=== PATIENT | male | born 1950 | race Caucasian/White ===

== ENCOUNTER 2016-06-10 19:14 | Inpatient (IN) | payer MEDICARE, OTHER ==
--- NOTE | ~2016-06-10 | CN ---
Consultation Report [facility] [address] [place]. [address] NAME: JEANIE OH SR : 48 STATUS : ADM IN PAT#: [id number] AGE: 65 ADM/REG DATE : 06/11/16 MR#: [id number] REPORT SERV DATE: 06/12/16 DICTATED BY: GURDEEP RUBIO DATE: 06/12/16 REPORT STATUS : Draft TRANSCRIBED BY: BUD DATE: 06/12/16 DATE OF CONSULTATION: CHIEF COMPLAINT: Renal insufficiency. HISTORY OF PRESENT ILLNESS: Mr. Oh is a 65-year-old patient of my partner, Dr. Lucas Cai. He has a longstanding history of an ischemic cardiomyopathy with EF of approximately 20%. Several months ago, he was changed from his usual regimen of valsartan to Entresto. In this setting, his baseline creatinine, which was mildly elevated, has gotten progressively worse. He was admitted to [facility] with acute on chronic renal insufficiency, creatinine around 4.9. His blood pressure has been running a bit on the low side as an outpatient. He has not had any symptoms of chest pain or dyspnea. PAST MEDICAL HISTORY: 1. Coronary artery disease with previous bypass surgery. 2. Ischemic cardiomyopathy, EF 20%. 3. Hypertension. 4. Hypercholesterolemia. 5. Type 2 diabetes. 6. Chronic kidney disease. 7. Hypothyroidism. SOCIAL HISTORY: He does not smoke or drink alcohol. FAMILY HISTORY: There is no family history of early coronary artery disease. REVIEW OF SYSTEMS: A complete review of systems was obtained, which is negative in detail except as mentioned above in the HPI. ALLERGIES: NO KNOWN DRUG ALLERGIES. MEDICATIONS: Include Lipitor 40 mg daily, Bumex 1 mg orally as needed, Rocaltrol, Coreg 12.5 mg twice a day, Plavix 75 mg daily, vitamin B12, Benadryl, vitamin D, iron, Proscar, insulin, Synthroid, potassium 20 mEq as needed with Bumex, Zantac, Entresto 24/ one twice a day, vitamin E, and zinc. PHYSICAL EXAMINATION: VITAL SIGNS: Blood pressure 123/74, heart rate of 80, respiratory rate of 14. GENERAL: Comfortable in no acute distress. HEENT: Anicteric. No xanthelasma. Lips without cyanosis. NECK: No JVD. Carotids 2+ and symmetric. No carotid bruits. LUNGS: CTA bilaterally. No wheezes or rhonchi. No accessory muscle use. Consultation Report [facility] [place] [address] [place]. [address] NAME: JEANIE OH SR : 48 STATUS : ADM IN PAT#: [id number] AGE: 65 ADM/REG DATE : 06/11/16 MR#: [id number] REPORT SERV DATE: 06/12/16 DICTATED BY: GURDEEP RUBIO DATE: 06/12/16 REPORT STATUS : Draft TRANSCRIBED BY: BUD DATE: 06/12/16 COR: RRR. Normally placed PMI. Normal S1 and S2. No murmurs, rubs or gallops. ABD: Soft, nontender, nondistended. Normal bowel sounds. No abdominal bruits. EXT: No clubbing, cyanosis or edema 2+ and symmetric distal pulses. SKIN: Warm. Dry. No venous stasis changes. MS: No kyphosis. NEURO/PSYCH: Oriented x3. No anxiety or depression. LABORATORY STUDIES: Potassium of 3.8, creatinine of 4.84 today down from 4.99 yesterday, hematocrit of 34. EKG: A 12-lead EKG shows sinus rhythm with left bundle-branch block. IMPRESSION: Mr. Oh is a 65-year-old man with an ischemic cardiomyopathy, ejection fraction around 20%. In the setting of starting Entresto, he has developed worsening of chronic renal insufficiency, now in acute renal failure. I agree with plans to hold this Entresto, gently rehydrate him, and monitor his blood pressure with plans to let his blood pressure run a bit high at least in the short term. FELIX/BUD Gurdeep Rubio M.D. / [id number] CC: MD Jo Ann Sharma M.D.
--- NOTE | ~2016-06-10 | CN ---
Consultation Report [facility] [address] [place]. [address] NAME: JEANIE OH SR : 48 STATUS : ADM IN PAT#: [id number] AGE: 65 ADM/REG DATE : 06/11/16 MR#: [id number] REPORT SERV DATE: 06/11/16 DICTATED BY: DATE: REPORT STATUS : Draft TRANSCRIBED BY: MODL DATE: 06/11/16 CONSULTATION DATE OF CONSULTATION: 06/11/2016 REASON FOR CONSULTATION: Acute kidney injury. HISTORY OF PRESENT ILLNESS: Mr. Oh is a 65-year-old, white male with a history of CKD, followed in [place] by Dr. Keita. He presented to the hospital after being told by his on site construction superintendent that his kidney function was worse and he needed further evaluation. I looked through the record in April here at this hospital. He had a creatinine of 1.9. In May, he had a creatinine of 2.5. Dr. Cai started him on Entresto on 05/05/2016. He currently denies any shortness of breath, chest pain, tightness, or pressure. He has had no problems with edema. He had Bumex increased in March. About a week and a half ago, he had some fevers and was placed on amoxicillin. This has been since discontinued. He has noted over the last couple weeks odd feeling, checks his blood pressure and is in the 90s and has been confirmed that is in the 90s at cardiac rehab as well. Denies any nausea, vomiting, or diarrhea. Denies any dysuria or hematuria. Has nocturia, which is chronic, is known to have BPH. PAST MEDICAL HISTORY: CKD, coronary artery disease, diabetes, CHF, CABG in 2015, hypertension, EF of 22%, hypothyroidism, anemia, cataract, BPH, obstructive sleep apnea, and hyperlipidemia. ALLERGIES: NONE. FAMILY MEDICAL HISTORY: No end-stage renal disease. SOCIAL HISTORY: He is , lives with in [facility]. No tobacco, alcohol, or illicit drug use. MEDICATIONS: At home prior to admission ascorbic acid, Lipitor, Bumex, Rocaltrol, Coreg, Plavix, B12, Benadryl, vitamin D, ferrous sulfate, Proscar, NovoLog, Lantus, levothyroxine, Klor-Con, Zantac, Entresto, vitamin E or zinc. REVIEW OF SYSTEMS: A 12-point review of systems obtained and negative with the exception of that in HPI. PHYSICAL EXAMINATION: VITAL SIGNS: Temperature 98.3, blood pressure 145/84, pulse 96, respiratory rate 18, O2 saturation is 100%. GENERAL: This is a pleasant, cooperative, white male. He is awake, alert, and oriented x3. No acute distress. Answers questions appropriately. HEENT: Normocephalic and atraumatic. Conjunctivae clear. Sclerae anicteric. Pupils are Consultation Report [place] [id number] [facility] [place]. [address] NAME: JEANIE OH SR : 48 STATUS : ADM IN [facility]#: [id number] AGE: 65 ADM/REG DATE : 06/11/16 MR#: [id number] REPORT SERV DATE: 06/11/16 DICTATED BY: DATE: REPORT STATUS : Draft TRANSCRIBED BY: MODL DATE: 06/11/16 equal and round. Oral mucosa is moist. NECK: Supple. Carotids without bruits. Neck veins flat. No lymphadenopathy. LUNGS: Respirations are even and unlabored. Breath sounds clear to auscultation. HEART: Rate is regular. No murmur, rub, or gallop. ABDOMEN: Soft and nontender. Bowel sounds active. No masses. No hepatosplenomegaly. No bruits. No CVA tenderness. BACK: Within normal limits. EXTREMITIES: No edema, cyanosis, or clubbing. SKIN: Warm, dry, and intact. No unusual rashes or skin lesions. NEUROLOGIC: No focal deficits. Mood and affect pleasant and appropriate. PERTINENT LABS AND X-RAYS: Sodium 135, potassium 4, chloride 99, CO2 20, BUN of 86, creatinine 4.9, glucose 291, calcium 8.5, magnesium 2, phosphorus 4.8, WBCs 8, H and H 11 and 34, platelets 181. Chest x-ray is negative. IMPRESSION: 1. Acute kidney injury. 2. Chronic kidney disease stage 3. 3. Ischemic cardiomyopathy. 4. Type 2 diabetes. 5. Coronary artery disease, status post bypass. 6. Hypertension. 7. History of benign prostatic hyperplasia. PLAN/RECOMMENDATIONS: It sounds as if the Entresto is the change that may have led to this acute kidney injury as it was started on 05/05/2016 and his creatinine went from April 1.9 to 2.5 and has continued to rise despite adjustment of Bumex as an outpatient. They actually stopped it and it continued to worsen. He has also had low blood pressures and may have an ATN as a result; however, he has good urine output per his recollection, check renal ultrasound, stop Entresto and Bumex, urine studies, labs, I's and O's. He has no uremic symptoms or volume overload. No indication for dialysis today. However, if continued on this with rising creatinine, he may in fact need dialysis in hope to avoid further orders and recommendations pending clinical course. JESUS/BUD RAPHAEL Hendricks / [id number] CC: Maico Kuo MD Consultation Report [address] [address] NAME: JEANIE OH : 48 STATUS : ADM IN PAT#: [id number] AGE: 65 ADM/REG DATE : 06/11/16 MR#: [id number] REPORT SERV DATE: 06/11/16 DICTATED BY: DATE: REPORT STATUS : Draft TRANSCRIBED BY: BUD DATE: 06/11/16 Harry Roberts M.D.
--- NOTE | ~2016-06-10 | DS ---
Discharge Summary [facility] [address] [place]. [address] NAME: JEANIE PIMENTEL SR : 48 STATUS : DIS IN PAT#: [id number] AGE: 65 ADM/REG DATE : 06/11/16 MR#: [id number] REPORT SERV DATE: 06/19/16 DICTATED BY: NATHAN QUIROGA DATE: 06/18/16 REPORT STATUS : Draft TRANSCRIBED BY: MODL DATE: 06/18/16 ADMISSION DATE: 06/11/2016 DISCHARGE DATE: 06/18/2016 The patient is a 65-year-old male with a history of hypertension, diabetes type 2, ischemic cardiomyopathy, heart failure with reduced EF who was referred to the emergency room by his precision agriculture specialist due to elevated creatinine. For further details, please refer to H and P dictated by Dr. Stock on 06/11/2016. Briefly, the patient has a history of ischemic cardiomyopathy and heart failure with reduced EF of 20%. He was followed by Cardiology, initially placed on an ARB with some improvement, however, his medication several weeks ago was changed to Entresto. Status post initiation of Entresto, his creatinine started trending up. The patient has been followed by his cathode ray tube salvage processor and precision agriculture specialist. Upon presenting to the precision agriculture specialist's office for regular followup, it was noted that his creatinine was severely elevated. The patient was referred to the emergency room for further evaluation and management. At the time when the patient presented to the emergency room, the patient was admitted under the Hospitalist Service for further management. Nephrology was consulted to assist in management. For further details, please refer to consultation note dictated on 06/11/2016. Cardiology was also consulted given his history of ischemic cardiomyopathy and heart failure with reduced EF. For further details, please refer to consultation note dictated by Dr. Gurdeep Tripp on 06/12/2016. On presentation, his Entresto was subsequently held and nephrotoxins were avoided. Cardiology was consulted. From their evaluation, the thought process was that placing an AICD would benefit the patient by ensuring adequate blood flow through the kidneys. The patient is status post placement of AICD. He has remained hemodynamically stable throughout his hospitalization with his creatinine gradually trending downwards. Currently, his last creatinine is 4.26. Given completion of workup, the patient has been cleared by Cardiology and by Nephrology to follow with his precision agriculture specialist within a week. Given his hemodynamic stability, completion of workup, the patient will be discharged home to follow up with his cathode ray tube salvage processor, primary care physician, and Nephrology. Plan has been discussed with the patient who voices understanding and is agreeable with this plan. DISCHARGE EXAMINATION: VITAL SIGNS: Blood pressure 141/84 with a pulse of 90, respirations 20, O2 saturation 96% on room air, and temperature 99.2. GENERAL: The patient is sitting in bed comfortably, in no acute distress. HEENT: Normocephalic and atraumatic. Extraocular motors are intact. Trachea is midline and symmetric. No JVD noted. CHEST: Nontender to palpation. CARDIOVASCULAR: Regular rate and rhythm. S1 and S2. No murmurs, rubs, or gallops. LUNGS: Clear to auscultation bilaterally. No added breath sounds. ABDOMEN: Obese. Positive bowel sounds. Nontender and nondistended. EXTREMITIES: No cyanosis, no clubbing, and no edema. NEURO: Alert and oriented x3. DISCHARGE DIAGNOSES: 1. Acute kidney injury on chronic kidney disease, stage IV, currently diabetes type 2. 2. Hypertension. Discharge Summary [address] [address] NAME: JEANIE PIMENTEL : 48 STATUS : DIS IN PAT#: [id number] AGE: 65 ADM/REG DATE : 06/11/16 MR#: [id number] REPORT SERV DATE: 06/19/16 DICTATED BY: NATHAN QUIROGA DATE: 06/18/16 REPORT STATUS : Draft TRANSCRIBED BY: BUD DATE: 06/18/16 3. Ischemic cardiomyopathy. 4. Heart failure with reduced ejection fraction of 42%. 5. Hypothyroidism. 6. Obesity. DISCHARGE MEDICATIONS: 1. Atorvastatin 40 mg p.o. at bedtime. 2. Calcitriol 0.25 mcg p.o. Mondays and . 3. Carvedilol 12.5 mg p.o. twice a day. 4. Plavix 75 mg p.o. daily. 5. Vitamin B12 1000 mcg p.o. at bedtime. 6. Vitamin D 50,000 units p.o. every 14 days. 7. Ferrous sulfate 325 mg p.o. three times a day. 8. Finasteride 5 mg p.o. daily. 9. Insulin sliding scale. 10.Insulin Lantus 20 units subcutaneously at bedtime. 11.Levothyroxine 75 mg p.o. q.48 hours. 12.Ascorbic acid 500 mg p.o. twice a day. 13.Bumex 1 mg p.o. daily p.r.n. 14.Zinc sulfate 220 mg p.o. at bedtime. PROCEDURES: 1. The patient had ICD placement during this admission, also renal ultrasound. Impression; increased renal cortical echogenicity compatible with chronic medical renal disease. 2. No hydronephrosis. DISPOSITION: The patient will be discharged home to follow up with his primary care physician, Nephrology, and Cardiology. The patient has been instructed to hold off on Entresto. ACTIVITY: As tolerated. DIET: Renal diet. TIME SPENT: Greater than 30 minutes was spent coordinating discharge, discharge planning, dictation of note, medication reconciliation, and writing prescription. PHILLY/BUD Nathan Quiroga MD / [id number] Discharge Summary [address] [address] NAME: JEANIE PIMENTEL : 48 STATUS : DIS IN [facility]#: [id number] AGE: 65 ADM/REG DATE : 06/11/16 MR#: [id number] REPORT SERV DATE: 06/19/16 DICTATED BY: NATHAN QUIROGA DATE: 06/18/16 REPORT STATUS : Draft TRANSCRIBED BY: BUD DATE: 06/18/16 CC: MD Jo Ann Molina M.D.
--- NOTE | ~2016-06-10 | HP ---
History And Physical [facility] [address] [facility] [place]. [address] NAME: JEANIE OH SR : 48 STATUS : ADM IN [facility]#: [id number] AGE: 65 ADM/REG DATE : 06/11/16 MR#: [id number] REPORT SERV DATE: 06/11/16 DICTATED BY: WILLIAMS BARNHART DATE: 06/11/16 REPORT STATUS : Draft TRANSCRIBED BY: MODL DATE: 06/11/16 DATE OF ADMISSION: 06/11/2016 CHIEF COMPLAINT: Abnormal labs. The patient was asked to go to the emergency room. HISTORY OF PRESENT ILLNESS: Mr. Oh is a 65-year-old male, who is a patient of Dr. Juhi Keita in [place], [place]. He was seen in Dr. Keita's office about two weeks ago, and he had an elevated creatinine. His medications were readjusted, and he was seen again this week for followup labs which were drawn. Today, he was called by one of the providers and has to go to the emergency room right away because his labs were abnormal and his serum creatinine had gone up. Unfortunately, we do not have any of these records and the entire information above was given to me by the patient and Dr. Keita does not come to [facility]. In the emergency room, here at [facility], the patient appeared to have acute kidney injury, diabetes mellitus with hyperglycemia. His serum creatinine was 4.91 today. This had gone up from 2.58 since 05/18/2016. Hospitalist Service is asked to admit him for further evaluation and treatment. At the time of my evaluation, he denied any chest pain, palpitations, or orthopnea. He had no cough, hemoptysis, night sweats, or weight loss. He denied any fevers, chills, nausea, vomiting, diarrhea. He had no falls or loss of consciousness recently. No history of hematemesis or hematochezia or hematuria. No other history of recent travel or exposures other than those mentioned above. PAST MEDICAL HISTORY: Significant for history of chronic kidney disease, details of which we do not have. He has diabetes mellitus type 2, coronary artery disease with CABG done in 2014. He has congestive heart failure with an ejection fraction of 40-50%, hypertension, hypothyroidism, chronic elevation of troponin. He has anemia of chronic disease; benign prostatic hypertrophy; obstructive sleep apnea, on CPAP therapy; and history of hypercholesterolemia. SOCIAL HISTORY: He does not smoke, drink, or use recreational drugs. FAMILY HISTORY: Noncontributory. MEDICATIONS: At home were reviewed by me in the chart today and reordered by me. REVIEW OF SYSTEMS: As in history of present illness. All other systems reviewed in detail and are quite unremarkable. PHYSICAL EXAMINATION: GENERAL: This is a pleasant 65-year-old, not in any acute distress. He is alert, awake, oriented to time, place, and person. HEENT: His head is atraumatic, normocephalic. Pupils are equal, reacting to light and History And Physical [address] [address] NAME: JEANIE OH : 48 STATUS : ADM IN [facility]#: [id number] AGE: 65 ADM/REG DATE : 06/11/16 MR#: [id number] REPORT SERV DATE: 06/11/16 DICTATED BY: WILLIAMS BARNHART DATE: 06/11/16 REPORT STATUS : Draft TRANSCRIBED BY: BUD DATE: 06/11/16 accommodating. External ocular muscles are intact. Membranes are moist and pink. Sclerae are nonicteric. NECK: Supple with no jugular venous distention, lymphadenopathy, or thyromegaly. LUNGS: Clear to auscultation with no wheezes, rubs, or crackles. HEART: Heart sounds were regular with no murmurs, rubs, or gallops. ABDOMEN: Soft, nontender. Bowel sounds are present. EXTREMITIES: No cyanosis, clubbing, or edema. NEUROLOGIC: Grossly intact. No focal sensory or motor deficits. Higher functions appeared intact. Gait was not examined. VITAL SIGNS: His vital signs today showed a temperature of 98.3, pulse 106, respirations were 16 a minute, and blood pressure upon arrival was 144/76, oxygen saturations were 97%, breathing 3 L of oxygen via nasal cannula. LABORATORY DATA: Reviewed on the [employer] system showed a sodium of 134, potassium 3.8, chloride 100, and CO2 of 20. BUN was 93 with a creatinine of 4.91, which is up from 2.58 on 05/18/2016. His BUN on that day was 58. Glucose was 192. Alkaline phosphatase today was 145. ALT and AST were within normal limits. BNP was elevated at 778.7 today. CBC showed a white blood cell count of 8700, hemoglobin was 12.6, hematocrit 35.6, and platelet count was 224,000. Urinalysis was not performed today. Films of the chest x-ray were reviewed by me on the PACS today and interpreted by me. Per my interpretation, there is normal bony architecture with no cardiomegaly. There is a prior sternotomy. No acute infiltrates or effusions were seen. A 12-lead EKG done in the emergency room was reviewed and interpreted by me. There is normal sinus rhythm with a rate of 96 with a left bundle-branch block. IMPRESSION: 1. Acute on chronic kidney disease. 2. Diabetes mellitus with hyperglycemia. 3. Hypomagnesemia. 4. Coronary artery disease with CABG. 5. Congestive heart failure with an ejection fraction of 40-50%. 6. Hypertension. 7. Hypothyroidism. 8. Chronic elevation of troponin. 9. Obstructive sleep apnea, on CPAP therapy. 10.Hypercholesterolemia. 11.Benign prostatic hypertrophy. 12.Anemia of chronic disease. 13.Volume overload. PLAN: We will admit Mr. Oh to the Hospitalist Service with telemetry for close monitoring. Consult Nephrology in this hospital; however, again, we have no details from Dr. Keita's office, which we might have to acquire. We will start him on intravenous Bumex for his volume overload. Follow outputs and daily weights. We will get an echocardiogram in the morning as well. We will start him on blood sugar control with NovoLog given subcutaneously per sliding scale. Check his A1c. We will replace magnesium now. Follow chemistry and electrolytes in the morning and replace as needed. We will also check his thyroid function. We will place him on unfractionated heparin, low dose for now History And Physical [address] [address] NAME: JEANIE OH : 48 STATUS : ADM IN [facility]#: [id number] AGE: 65 ADM/REG DATE : 06/11/16 MR#: [id number] REPORT SERV DATE: 06/11/16 DICTATED BY: WILLIAMS BARNHART DATE: 06/11/16 REPORT STATUS : Draft TRANSCRIBED BY: BUD DATE: 06/11/16 for DVT prophylaxis. Further recommendations will be after Nephrology has had a chance to see him. Hospitalist Service will be following him during his stay here. /BUD Williams Barnhart M.D. / [id number] CC: MD Jo Ann Sharma M.D.
[~2016-06-10 19:14] MED LIST: ASAB PO; BEN25 PO; BUM1 PO; BUM5 PO; BYSTOLIC10 MG PO; CARDU4 PO; COREG25 PO; COREG6 PO; CYANO1000T PO; DIABETA5 PO; DIOVAN320 MG PO; FLOMAX4 PO; GLUCPH8 PO; INSNOV7030 SQ; IRON TAB PO; IRON325 MG PO; KLOR-CON M2020 MEQ PO; L20 PO; LANTUS SC; LIPITOR80 MG PO; MONODOX100 MG PO; NORCO1 TA1 PO; NORV5 PO; NOVOLOG SC; NOVOPEN SC; P20 PO; PLAVIX PO; PRILO PO; PROSCAR5 PO; PROTONIX PO; ROCALTROL 0.0.25 MCG PO; SYN.05 PO; VICTOZA18 MG/3 ML SC; VIT C PO; VITAMIN B-12 PO; VITAMIN B-121000 MC1 SL; VITAMIN E PO; VITC500 PO; VITD PO; VITE PO; ZINC220C PO; ZOCOR20 PO
[2016-06-10 21:47] LABS: BASOPHILS 0.6 %; BASOPHILS ABSOLUTE 0.05 10/3/uL (0.0-0.16); EOSINOPHILS 3.2 %; EOSINOPHILS ABSOLUTE 0.28 10/3/uL (0.0-0.53); ER CBC TAT 0 Hrs 07 Mins; IMMATURE GRANULOCYTES 0.2 %; IMMATURE GRANULOCYTES ABSOLUTE 0.02 10/3/uL (0.0-0.11); LYMPHOCYTES 12.7 %; LYMPHOCYTES ABSOLUTE 1.11 10/3/uL (0.67-4.30); MEAN CORPUSCULAR HEMOGLOB 28.3 pg (26.0-34.0); MEAN PLATELET VOLUME 10.2 fL (9.2-13.0); MONOCYTES 7.1 %; MONOCYTES ABSOLUTE 0.62 10/3/uL (0.21-1.20); NEUTROPHILS 76.2 %; NEUTROPHILS ABSOLUTE 6.66 10/3/uL (2.02-8.40); PLATELET COUNT 224 10/3/uL (150-400); RBC DISTRIBUTION WIDTH 15.4 % (12.0-16.0); WHITE BLOOD CELLS 8.7 10/3/uL (4.5-10.5)
[2016-06-10 21:53] LABS: HEMATOCRIT 35.6 % (40.0-51.0); HEMOGLOBIN 12.6 g/dL (13.6-17.8); MANUAL DIFF NO %; MEAN CORPUS HGB CONC 35.4 g/dL (32.0-36.0); RED CELL COUNT 4.45 10/6/uL (4.7-6.1)
[2016-06-10 22:06] LABS: CALCIUM, SERUM 8.5 MG/DL (8.5-10.4); CHLORIDE, SERUM 100 MMOL/L (96-112); POTASSIUM, SERUM 3.8 MMOL/L (3.5-5.3); SGOT(AST) 26 U/L (5-40); SGPT(ALT) 48 U/L (5-65); SODIUM, SERUM 134 MMOL/L (135-148); TOTAL BILIRUBIN 0.6 MG/DL (0-1.2)
[2016-06-10 22:08] LABS: A/G RATIO 0.9 (0.7-1.9); ALKALINE PHOSPHATASE 145 U/L (45-117); BUN (BLOOD UREA NITROGEN) 93 MG/DL (6-23); CO2 (CARBON DIOXIDE) 20 MMOL/L (24-34); CREATININE 4.91 MG/DL (0.70-1.30); GFR AFRICAN AMERICAN 13 ML/MIN (>=60); GFR NON AFRICAN AMERICAN 11 ML/MIN (>=60); GLOBULIN 4.4 G/DL (2.5-4.1); GLUCOSE, SERUM 192 MG/DL (60-99); TOTAL PROTEIN 8.4 G/DL (6.0-8.5)
[2016-06-10 22:42] LABS: SEGMENTED NEUTROPHIL (0) 77 %; TOTAL NUCLEATED CELLS 100
[2016-06-10 22:43] LABS: EOSINOPHILS 3 %; EOSINOPHILS ABSOLUTE (CALC) 0.26 10/3/uL (0.0-0.53); ER DIFF TAT 1 Hrs 02 Mins; LYMPHOCYTES 15 %; LYMPHOCYTES ABSOLUTE (CALC) 1.31 10/3/uL (0.67-4.30); MONOCYTES 5 %; MONOCYTES ABSOLUTE (CALC) 0.44 10/3/uL (0.21-1.20); PLATELET ESTIMATE ADQ (ADEQUATE); RBC MORPHOLOGY NORM (NORMAL)
[2016-06-10] MEDS ORDERED: VITC500 PO (23:10)
[2016-06-10] MEDS ORDERED: ROCALTROL 0.0.25 MCG PO (23:11)
[2016-06-10] MEDS ORDERED: BUM1 PO (23:11)
[2016-06-10] MEDS ORDERED: LIPITOR40 PO (23:11)
[2016-06-10] MEDS ORDERED: COREG12 PO (23:12)
[2016-06-10] MEDS ORDERED: VITAMIN B-121000 MC1 SL (23:12)
[2016-06-10] MEDS ORDERED: PLAVIX PO (23:12)
[2016-06-10] MEDS ORDERED: VITD PO (23:13)
[2016-06-10] MEDS ORDERED: BEN25 PO (23:13)
[2016-06-10] MEDS ORDERED: FERROUS SULF325 M1 PO (23:13)
[2016-06-10] MEDS ORDERED: LEVOTHYROXIN50 MCG PO (23:14)
[2016-06-10] MEDS ORDERED: NOVOLOG SC (23:14)
[2016-06-10] MEDS ORDERED: PROSCAR5 PO (23:14)
[2016-06-10] MEDS ORDERED: LANTUS SC (23:14)
[2016-06-10] MEDS ORDERED: LEVOTHYROXIN75 MCG PO (23:15)
[2016-06-10] MEDS ORDERED: KLOR-CON M2020 MEQ PO (23:15)
[2016-06-10] MEDS ORDERED: VITAMIN E PO (23:15)
[2016-06-10] MEDS ORDERED: ZANTAC150 MG PO (23:16)
[2016-06-10] MEDS ORDERED: ZINC220C PO (23:17)
[2016-06-10] MEDS ORDERED: SACU1TAB PO (23:19)
[2016-06-11 07:06] LABS: HEMATOCRIT 34.2 % (40.0-51.0); HEMOGLOBIN 11.9 g/dL (13.6-17.8); MEAN CORPUS HGB CONC 34.8 g/dL (32.0-36.0); MEAN CORPUSCULAR HEMOGLOB 28.3 pg (26.0-34.0); MEAN CORPUSCULAR VOLUME 81.2 fL (80-100); MEAN PLATELET VOLUME 9.8 fL (9.2-13.0); PLATELET COUNT 181 10/3/uL (150-400); RBC DISTRIBUTION WIDTH 15.5 % (12.0-16.0); RED CELL COUNT 4.21 10/6/uL (4.7-6.1)
[2016-06-11 07:11] LABS: CALCIUM, SERUM 8.5 MG/DL (8.5-10.4); CHLORIDE, SERUM 99 MMOL/L (96-112); CO2 (CARBON DIOXIDE) 20 MMOL/L (24-34); CREATININE 4.99 MG/DL (0.70-1.30); GFR AFRICAN AMERICAN 13 ML/MIN (>=60); GFR NON AFRICAN AMERICAN 11 ML/MIN (>=60); SODIUM, SERUM 135 MMOL/L (135-148)
[2016-06-11 07:12] LABS: BUN (BLOOD UREA NITROGEN) 86 MG/DL (6-23); GLUCOSE, SERUM 291 MG/DL (60-99); PHOSPHORUS, SERUM 4.8 MG/DL (2.5-4.5)
[2016-06-11 07:23] LABS: MANUAL DIFF YES %
[2016-06-11 07:52] LABS: BAND NEUTROPHILS 8 %; EOSINOPHILS 2 %; EOSINOPHILS ABSOLUTE (CALC) 0.16 10/3/uL (0.0-0.53); LYMPHOCYTES 11 %; LYMPHOCYTES ABSOLUTE (CALC) 0.88 10/3/uL (0.67-4.30); MONOCYTES 6 %; MONOCYTES ABSOLUTE (CALC) 0.48 10/3/uL (0.21-1.20); NEUTROPHILS ABSOLUTE (CALC) 6.48 10/3/uL (2.02-8.40); PLATELET ESTIMATE ADQ (ADEQUATE); RBC MORPHOLOGY NORM (NORMAL); SEGMENTED NEUTROPHIL (0) 73 %; TOTAL NUCLEATED CELLS 100
[2016-06-11 16:48] LABS: CREATININE, URINE 24.9 MG/DL
[2016-06-11 18:41] LABS: ASCORBIC ACID (UR NOT ORDER) NEG (NEG); BILIRUBIN, URINE NEGATIVE (NEG); KETONE, URINE NEGATIVE (NEG); LEUKOCYTE ESTERASE(NOT OR NEG (NEG); WBC (NOT ORDERED) (RFLEX) 2 (0-5)
[2016-06-12 07:09] LABS: BASOPHILS 0.4 %; BASOPHILS ABSOLUTE 0.03 10/3/uL (0.0-0.16); EOSINOPHILS 2.4 %; HEMATOCRIT 34.1 % (40.0-51.0); HEMOGLOBIN 11.9 g/dL (13.6-17.8); IMMATURE GRANULOCYTES 0.1 %; IMMATURE GRANULOCYTES ABSOLUTE 0.01 10/3/uL (0.0-0.11); LYMPHOCYTES 12.3 %; LYMPHOCYTES ABSOLUTE 1.01 10/3/uL (0.67-4.30); MEAN CORPUS HGB CONC 34.9 g/dL (32.0-36.0); MEAN CORPUSCULAR HEMOGLOB 28.3 pg (26.0-34.0); MEAN PLATELET VOLUME 10.1 fL (9.2-13.0); MONOCYTES 6.6 %; MONOCYTES ABSOLUTE 0.54 10/3/uL (0.21-1.20); NEUTROPHILS 78.2 %; PLATELET COUNT 206 10/3/uL (150-400); RBC DISTRIBUTION WIDTH 15.6 % (12.0-16.0); RED CELL COUNT 4.21 10/6/uL (4.7-6.1); WHITE BLOOD CELLS 8.2 10/3/uL (4.5-10.5)
[2016-06-12 07:12] LABS: ALBUMIN 3.5 G/DL (3.5-5.0); BUN (BLOOD UREA NITROGEN) 91 MG/DL (6-23); CALCIUM, SERUM 8.6 MG/DL (8.5-10.4); CHLORIDE, SERUM 98 MMOL/L (96-112); CO2 (CARBON DIOXIDE) 18 MMOL/L (24-34); CREATININE 4.84 MG/DL (0.70-1.30); GFR AFRICAN AMERICAN 13 ML/MIN (>=60); GFR NON AFRICAN AMERICAN 12 ML/MIN (>=60); GLUCOSE, SERUM 171 MG/DL (60-99); PHOSPHORUS, SERUM 5.1 MG/DL (2.5-4.5); POTASSIUM, SERUM 3.8 MMOL/L (3.5-5.3); SODIUM, SERUM 134 MMOL/L (135-148)
[2016-06-12 07:13] LABS: MANUAL DIFF NO %
[2016-06-13 09:32] LABS: HEMATOCRIT 33.9 % (40.0-51.0); HEMOGLOBIN 11.9 g/dL (13.6-17.8); MEAN CORPUS HGB CONC 35.1 g/dL (32.0-36.0); MEAN CORPUSCULAR HEMOGLOB 28.5 pg (26.0-34.0); MEAN CORPUSCULAR VOLUME 81.1 fL (80-100); PLATELET COUNT 196 10/3/uL (150-400); RBC DISTRIBUTION WIDTH 15.4 % (12.0-16.0); RED CELL COUNT 4.18 10/6/uL (4.7-6.1); WHITE BLOOD CELLS 8.5 10/3/uL (4.5-10.5)
[2016-06-13 09:33] LABS: MANUAL DIFF YES %
[2016-06-13 09:53] LABS: ALBUMIN 3.3 G/DL (3.5-5.0); BUN (BLOOD UREA NITROGEN) 94 MG/DL (6-23); CALCIUM, SERUM 8.3 MG/DL (8.5-10.4); CHLORIDE, SERUM 102 MMOL/L (96-112); CO2 (CARBON DIOXIDE) 18 MMOL/L (24-34); CREATININE 4.81 MG/DL (0.70-1.30); FREE T4 1.01 NG/DL (0.76-1.46); GFR AFRICAN AMERICAN 13 ML/MIN (>=60); GFR NON AFRICAN AMERICAN 12 ML/MIN (>=60); GLUCOSE, SERUM 202 MG/DL (60-99); PHOSPHORUS, SERUM 4.7 MG/DL (2.5-4.5); POTASSIUM, SERUM 3.9 MMOL/L (3.5-5.3); SODIUM, SERUM 134 MMOL/L (135-148)
[2016-06-13 10:40] LABS: BAND NEUTROPHILS 3 %; BASOPHILS 1 %; BASOPHILS ABSOLUTE (CALC) 0.09 10/3/uL (0.0-0.16); EOSINOPHILS 2 %; EOSINOPHILS ABSOLUTE (CALC) 0.17 10/3/uL (0.0-0.53); LYMPHOCYTES 13 %; LYMPHOCYTES ABSOLUTE (CALC) 1.11 10/3/uL (0.67-4.30); MONOCYTES 8 %; MONOCYTES ABSOLUTE (CALC) 0.68 10/3/uL (0.21-1.20); NEUTROPHILS ABSOLUTE (CALC) 6.46 10/3/uL (2.02-8.40); PLATELET ESTIMATE ADQ (ADEQUATE); POLYCHROMASIA 1+ (2-5/OIF) (0-1/OIF); SEGMENTED NEUTROPHIL (0) 73 %; TOTAL NUCLEATED CELLS 100; TOXIC GRANULATION SLT
[2016-06-14 06:23] LABS: BASOPHILS 0.5 %; BASOPHILS ABSOLUTE 0.04 10/3/uL (0.0-0.16); EOSINOPHILS 2.7 %; EOSINOPHILS ABSOLUTE 0.21 10/3/uL (0.0-0.53); HEMOGLOBIN 11.5 g/dL (13.6-17.8); LYMPHOCYTES 12.2 %; LYMPHOCYTES ABSOLUTE 0.97 10/3/uL (0.67-4.30); MANUAL DIFF NO %; MEAN CORPUS HGB CONC 34.8 g/dL (32.0-36.0); MEAN CORPUSCULAR HEMOGLOB 28.2 pg (26.0-34.0); MEAN CORPUSCULAR VOLUME 80.9 fL (80-100); MEAN PLATELET VOLUME 9.7 fL (9.2-13.0); MONOCYTES 6.8 %; MONOCYTES ABSOLUTE 0.54 10/3/uL (0.21-1.20); NEUTROPHILS 77.8 %; NEUTROPHILS ABSOLUTE 6.16 10/3/uL (2.02-8.40); PLATELET COUNT 203 10/3/uL (150-400); RBC DISTRIBUTION WIDTH 15.9 % (12.0-16.0); RED CELL COUNT 4.08 10/6/uL (4.7-6.1); WHITE BLOOD CELLS 7.9 10/3/uL (4.5-10.5)
[2016-06-14 06:33] LABS: ALBUMIN 3.3 G/DL (3.5-5.0); BUN (BLOOD UREA NITROGEN) 90 MG/DL (6-23); CALCIUM, SERUM 8.4 MG/DL (8.5-10.4); CHLORIDE, SERUM 102 MMOL/L (96-112); CO2 (CARBON DIOXIDE) 20 MMOL/L (24-34); CREATININE 4.63 MG/DL (0.70-1.30); GFR AFRICAN AMERICAN 14 ML/MIN (>=60); GFR NON AFRICAN AMERICAN 12 ML/MIN (>=60); GLUCOSE, SERUM 127 MG/DL (60-99); PHOSPHORUS, SERUM 4.5 MG/DL (2.5-4.5); POTASSIUM, SERUM 3.8 MMOL/L (3.5-5.3); SODIUM, SERUM 136 MMOL/L (135-148)
[2016-06-15 06:04] LABS: BASOPHILS 0.5 %; BASOPHILS ABSOLUTE 0.04 10/3/uL (0.0-0.16); EOSINOPHILS 2.8 %; EOSINOPHILS ABSOLUTE 0.24 10/3/uL (0.0-0.53); HEMATOCRIT 31.4 % (40.0-51.0); HEMOGLOBIN 10.8 g/dL (13.6-17.8); IMMATURE GRANULOCYTES 0.2 %; IMMATURE GRANULOCYTES ABSOLUTE 0.02 10/3/uL (0.0-0.11); LYMPHOCYTES 9.8 %; LYMPHOCYTES ABSOLUTE 0.85 10/3/uL (0.67-4.30); MEAN CORPUS HGB CONC 34.4 g/dL (32.0-36.0); MEAN CORPUSCULAR HEMOGLOB 28.1 pg (26.0-34.0); MEAN CORPUSCULAR VOLUME 81.6 fL (80-100); MEAN PLATELET VOLUME 9.8 fL (9.2-13.0); MONOCYTES 7.6 %; MONOCYTES ABSOLUTE 0.66 10/3/uL (0.21-1.20); NEUTROPHILS 79.1 %; NEUTROPHILS ABSOLUTE 6.89 10/3/uL (2.02-8.40); PLATELET COUNT 210 10/3/uL (150-400); RBC DISTRIBUTION WIDTH 15.7 % (12.0-16.0); RED CELL COUNT 3.85 10/6/uL (4.7-6.1); WHITE BLOOD CELLS 8.7 10/3/uL (4.5-10.5)
[2016-06-15 06:05] LABS: MANUAL DIFF NO %
[2016-06-15 06:14] LABS: ALBUMIN 3.2 G/DL (3.5-5.0); BUN (BLOOD UREA NITROGEN) 87 MG/DL (6-23); CHLORIDE, SERUM 103 MMOL/L (96-112); CO2 (CARBON DIOXIDE) 20 MMOL/L (24-34); CREATININE 4.39 MG/DL (0.70-1.30); GFR AFRICAN AMERICAN 15 ML/MIN (>=60); GFR NON AFRICAN AMERICAN 13 ML/MIN (>=60); GLUCOSE, SERUM 129 MG/DL (60-99); PHOSPHORUS, SERUM 5.2 MG/DL (2.5-4.5); POTASSIUM, SERUM 3.8 MMOL/L (3.5-5.3); SODIUM, SERUM 137 MMOL/L (135-148)
[2016-06-16 05:51] LABS: HEMATOCRIT 32.2 % (40.0-51.0); HEMOGLOBIN 11.2 g/dL (13.6-17.8); MEAN CORPUS HGB CONC 34.8 g/dL (32.0-36.0); MEAN CORPUSCULAR HEMOGLOB 28.6 pg (26.0-34.0); MEAN CORPUSCULAR VOLUME 82.1 fL (80-100); MEAN PLATELET VOLUME 9.6 fL (9.2-13.0); PLATELET COUNT 212 10/3/uL (150-400); RBC DISTRIBUTION WIDTH 15.5 % (12.0-16.0); RED CELL COUNT 3.92 10/6/uL (4.7-6.1)
[2016-06-16 05:53] LABS: MANUAL DIFF YES %
[2016-06-16 07:06] LABS: BAND NEUTROPHILS 1 %; BURR CELLS 1+ (3-10/OIF) (0-2/OIF); EOSINOPHILS 3 %; EOSINOPHILS ABSOLUTE (CALC) 0.27 10/3/uL (0.0-0.53); HELMET CELLS OCC (0-2/OIF); LYMPHOCYTES 10 %; MONOCYTES 11 %; MONOCYTES ABSOLUTE (CALC) 0.99 10/3/uL (0.21-1.20); NEUTROPHILS ABSOLUTE (CALC) 6.84 10/3/uL (2.02-8.40); PLATELET ESTIMATE ADQ (ADEQUATE); POIKILOCYTOSIS 1+ (5-10/OIF) (0-5/OIF); SCHISTOCYTES OCC (0-2/OIF); SEGMENTED NEUTROPHIL (0) 75 %; TOTAL NUCLEATED CELLS 100; TOXIC GRANULATION 1+
[2016-06-16 08:02] LABS: A/G RATIO 0.8 (0.7-1.9); ALBUMIN 3.3 G/DL (3.5-5.0); ALKALINE PHOSPHATASE 150 U/L (45-117); CALCIUM, SERUM 8.6 MG/DL (8.5-10.4); CHLORIDE, SERUM 100 MMOL/L (96-112); CO2 (CARBON DIOXIDE) 23 MMOL/L (24-34); CREATININE 4.34 MG/DL (0.70-1.30); GFR AFRICAN AMERICAN 15 ML/MIN (>=60); GFR NON AFRICAN AMERICAN 13 ML/MIN (>=60); GLOBULIN 3.9 G/DL (2.5-4.1); GLUCOSE, SERUM 139 MG/DL (60-99); POTASSIUM, SERUM 4.1 MMOL/L (3.5-5.3); SGOT(AST) 19 U/L (5-40); SGPT(ALT) 38 U/L (5-65); SODIUM, SERUM 135 MMOL/L (135-148); TOTAL BILIRUBIN 0.8 MG/DL (0-1.2); TOTAL PROTEIN 7.2 G/DL (6.0-8.5)
[2016-06-16 08:03] LABS: BUN (BLOOD UREA NITROGEN) 83 MG/DL (6-23)
[2016-06-17 05:59] LABS: BASOPHILS 0.5 %; BASOPHILS ABSOLUTE 0.04 10/3/uL (0.0-0.16); EOSINOPHILS 3.1 %; EOSINOPHILS ABSOLUTE 0.24 10/3/uL (0.0-0.53); HEMATOCRIT 29.6 % (40.0-51.0); HEMOGLOBIN 10.1 g/dL (13.6-17.8); IMMATURE GRANULOCYTES 0.1 %; IMMATURE GRANULOCYTES ABSOLUTE 0.01 10/3/uL (0.0-0.11); LYMPHOCYTES 11.8 %; LYMPHOCYTES ABSOLUTE 0.91 10/3/uL (0.67-4.30); MEAN CORPUS HGB CONC 34.1 g/dL (32.0-36.0); MEAN CORPUSCULAR HEMOGLOB 27.7 pg (26.0-34.0); MEAN CORPUSCULAR VOLUME 81.3 fL (80-100); MEAN PLATELET VOLUME 9.7 fL (9.2-13.0); MONOCYTES 8.5 %; MONOCYTES ABSOLUTE 0.66 10/3/uL (0.21-1.20); NEUTROPHILS ABSOLUTE 5.88 10/3/uL (2.02-8.40); PLATELET COUNT 200 10/3/uL (150-400); RBC DISTRIBUTION WIDTH 15.8 % (12.0-16.0); RED CELL COUNT 3.64 10/6/uL (4.7-6.1); WHITE BLOOD CELLS 7.7 10/3/uL (4.5-10.5)
[2016-06-17 06:05] LABS: MANUAL DIFF NO %
[2016-06-17 06:11] LABS: A/G RATIO 0.8 (0.7-1.9); ALBUMIN 3.1 G/DL (3.5-5.0); ALKALINE PHOSPHATASE 145 U/L (45-117); CALCIUM, SERUM 8.6 MG/DL (8.5-10.4); CHLORIDE, SERUM 99 MMOL/L (96-112); CO2 (CARBON DIOXIDE) 20 MMOL/L (24-34); CREATININE 4.26 MG/DL (0.70-1.30); GFR AFRICAN AMERICAN 16 ML/MIN (>=60); GFR NON AFRICAN AMERICAN 13 ML/MIN (>=60); GLOBULIN 3.9 G/DL (2.5-4.1); PHOSPHORUS, SERUM 4.3 MG/DL (2.5-4.5); SGOT(AST) 19 U/L (5-40); SGPT(ALT) 39 U/L (5-65); SODIUM, SERUM 134 MMOL/L (135-148); TOTAL BILIRUBIN 0.6 MG/DL (0-1.2)
[2016-06-17 06:13] LABS: BUN (BLOOD UREA NITROGEN) 79 MG/DL (6-23); GLUCOSE, SERUM 175 MG/DL (60-99)
[2016-06-18 05:13] LABS: CALCIUM, SERUM 8.7 MG/DL (8.5-10.4); CHLORIDE, SERUM 97 MMOL/L (96-112); CO2 (CARBON DIOXIDE) 22 MMOL/L (24-34); CREATININE 4.28 MG/DL (0.70-1.30); GFR AFRICAN AMERICAN 15 ML/MIN (>=60); GFR NON AFRICAN AMERICAN 13 ML/MIN (>=60); PHOSPHORUS, SERUM 4.4 MG/DL (2.5-4.5); SODIUM, SERUM 133 MMOL/L (135-148)
[2016-06-18 05:22] LABS: BUN (BLOOD UREA NITROGEN) 72 MG/DL (6-23); GLUCOSE, SERUM 225 MG/DL (60-99); POTASSIUM, SERUM 4.9 MMOL/L (3.5-5.3)
[2016-06-18] MEDS ORDERED: NORCO1 TA1 PO (12:10)
[2016-06-18 12:14] LABS: BUN (BLOOD UREA NITROGEN) 74 MG/DL (6-23); CALCIUM, SERUM 8.7 MG/DL (8.5-10.4); CHLORIDE, SERUM 94 MMOL/L (96-112); CO2 (CARBON DIOXIDE) 23 MMOL/L (24-34); GFR AFRICAN AMERICAN 15 ML/MIN (>=60); GFR NON AFRICAN AMERICAN 13 ML/MIN (>=60); GLUCOSE, SERUM 216 MG/DL (60-99); POTASSIUM, SERUM 4.5 MMOL/L (3.5-5.3); SODIUM, SERUM 129 MMOL/L (135-148)
[2016-08-24] MEDS ORDERED: COREG25 PO (10:54)
[2016-08-24] MEDS ORDERED: FLOMAX4 PO (11:08)
== END 2016-06-18 14:58 | disposition home or self-care (01) | DRG 226 ==
LOC: ER 19:14 → 2SO 06-11 00:50
PROVIDERS: Anesthesiology; Emergency Medicine; Hospitalist; Nurse Practitioner; Registered Nurse
PROC: 0JH609Z Insertion of Cardiac Resynchronization Defibrillator Pulse Generator into Chest Subcutaneous Tissue and Fascia, Open Approach (ICD-10-PCS; principal; 2016-06-17)
PROC: 02HK3KZ Insertion of Defibrillator Lead into Right Ventricle, Percutaneous Approach (ICD-10-PCS; 2016-06-17)
PROC: 02H43KZ Insertion of Defibrillator Lead into Coronary Vein, Percutaneous Approach (ICD-10-PCS; 2016-06-17)
PROC: 02H63KZ Insertion of Defibrillator Lead into Right Atrium, Percutaneous Approach (ICD-10-PCS; 2016-06-17)
DX: I13.0 Hypertensive heart and chronic kidney disease with heart failure and stage 1 through stage 4 chronic kidney disease, or unspecified chronic kidney disease (principal); I50.23 Acute on chronic systolic (congestive) heart failure; N18.4 Chronic kidney disease, stage 4 (severe); E11.22 Type 2 diabetes mellitus with diabetic chronic kidney disease; E11.65 Type 2 diabetes mellitus with hyperglycemia; Z99.81 Dependence on supplemental oxygen; I25.5 Ischemic cardiomyopathy; I25.10 Atherosclerotic heart disease of native coronary artery without angina pectoris; N40.0 Benign prostatic hyperplasia without lower urinary tract symptoms; E78.00 Pure hypercholesterolemia, unspecified; E03.9 Hypothyroidism, unspecified; E83.42 Hypomagnesemia; G47.33 Obstructive sleep apnea (adult) (pediatric); D63.8 Anemia in other chronic diseases classified elsewhere; I44.7 Left bundle-branch block, unspecified; E66.9 Obesity, unspecified; Z95.1 Presence of aortocoronary bypass graft
CPT/HCPCS: 33225; 33249; 71010; 71020; 76775; 80048; 80053; 80069; 81001; 82570; 82962; 83605; 83735; 83880; 84100; 84300; 84439; 84443; 84540; 85025; 93005; 93641; 99285; A9270-GY; C1769; C1882; C1887; C1892; C1898; C1900; J0690; J2370; J2405; J3010; Q9967

== ENCOUNTER 2016-08-26 06:54 | Day surgery (SDC) | payer MEDICARE, OTHER ==
--- NOTE | ~2016-08-26 | OP ---
Record Of Operation [facility] [address] [place]. [address] NAME: JEANIE PIMENTEL : 48 STATUS : [facility]#: [id number] AGE: 66 ADM/REG DATE : 08/26/16 MR#: [id number] REPORT SERV DATE: 08/27/16 DICTATED BY: BASIM RANKIN DATE: 08/26/16 REPORT STATUS : Draft TRANSCRIBED BY: MODL DATE: 08/26/16 DATE OF PROCEDURE: 08/26/2016 PREOPERATIVE DIAGNOSIS: Chronic kidney disease, stage 5. POSTOPERATIVE DIAGNOSIS: Chronic kidney disease, stage 5. PROCEDURE: Left radiocephalic arteriovenous fistula. SURGEON: Basim Rankin M.D. HACKSAW INSPECTOR: Cholo Dos Santos. ANESTHESIA: Block. INDICATIONS: The patient is a 66-year-old gentleman with stage 5 chronic kidney disease. I talked to him about the risks, benefits, and alternatives, and a left upper extremity arteriovenous fistula or graft for anticipated dialysis. He agreed to proceed. DESCRIPTION OF PROCEDURE: After informed consent was obtained, the patient was taken to the operating room and placed in the supine position on the operating table. Monitored anesthesia was administered. The patient's left upper extremity was prepped and draped in the fashion. A block had previously been administered. I had also previously performed an ultrasound of the left upper extremity and found that the cephalic vein was 4.2 mm in size. It was slightly smaller more proximally and then enlarged again towards the antecubital fossa. The radial artery was about 3 mm in diameter. I created a longitudinal skin incision along the forearm. Cautery was used to deepen the incision. I dissected out the cephalic vein at the bifurcation point. I transected it after ligating it distally. I had marked the vein for orientation. I controlled the radial artery after systemic heparinization. I then created a longitudinal arteriotomy onto which, I sewed the end of the cephalic vein. I flushed air and debris before tying down the sutures. I then released flow. There was a good thrill within the fistula. I freed up some of the subcutaneous tissue that was kinking the fistula a little bit. I washed out the wound, achieved hemostasis, and closed the wound in layers. The patient tolerated the procedure well without any intraprocedural complications noted. TREATMENT SUPERVISOR/BUD Basim Rankin M.D. / [id number] CC: Record Of Operation [address] [place]. [address] NAME: JEANIE PIMENTEL : 48 STATUS : [facility]#: [id number] AGE: 66 ADM/REG DATE : 08/26/16 MR#: [id number] REPORT SERV DATE: 08/27/16 DICTATED BY: BASIM RANKIN DATE: 08/26/16 REPORT STATUS : Draft TRANSCRIBED BY: BUD DATE: 08/26/16 Kian Biswas MD BALRAM L. CHHAJWANI, MD
[~2016-08-26 06:54] MED LIST changes: +COREG12 PO; +FERROUS SULF325 M1 PO; +LEVOTHYROXIN50 MCG PO; +LEVOTHYROXIN75 MCG PO; +LIPITOR40 PO; +SACU1TAB PO; +ZANTAC150 MG PO
== END 2016-08-26 13:54 | disposition home or self-care (01) ==
LOC: SDC 06:54
PROVIDERS: Surgery
PROC: 031C0ZF Bypass Left Radial Artery to Lower Arm Vein, Open Approach (ICD-10-PCS; principal; 2016-08-26 09:15)
DX: I13.2 Hypertensive heart and chronic kidney disease with heart failure and with stage 5 chronic kidney disease, or end stage renal disease (principal); E11.22 Type 2 diabetes mellitus with diabetic chronic kidney disease; N18.5 Chronic kidney disease, stage 5; I25.10 Atherosclerotic heart disease of native coronary artery without angina pectoris; G47.33 Obstructive sleep apnea (adult) (pediatric); I50.9 Heart failure, unspecified; E78.5 Hyperlipidemia, unspecified; E03.9 Hypothyroidism, unspecified; E78.00 Pure hypercholesterolemia, unspecified; D63.1 Anemia in chronic kidney disease; J45.909 Unspecified asthma, uncomplicated; K21.9 Gastro-esophageal reflux disease without esophagitis; D64.9 Anemia, unspecified; Z99.81 Dependence on supplemental oxygen; Z95.5 Presence of coronary angioplasty implant and graft; Z98.890 Other specified postprocedural states
CPT/HCPCS: 36821; 82962; 93005; A9270-GY; J0690; J2250; J2370; J2795; J3010